=== PATIENT | male | born 1960 | race Asian ===

== ENCOUNTER 2023-12-28 02:32 | Emergency (ER) | payer OTHER ==
[~2023-12-28] VITALS: Ht 162.6 cm; Wt 62.6 kg
[2023-12-28 03:00] VITALS: PULSE 92; RESP 18; TEMP 99.6; O2SAT 98
[2023-12-28 05:57] VITALS: BP 146/58; PULSE 62; RESP 16; TEMP 98.6
== END 2023-12-28 04:08 | disposition home or self-care (01) ==
LOC: FSED 03:06
DX: L03.211 Cellulitis of face (principal); B00.59 Other herpesviral disease of eye; B02.30 Zoster ocular disease, unspecified; I10 Essential (primary) hypertension
CPT/HCPCS: 99282